=== PATIENT | female | born 1980 | race Caucasian/White ===

== ENCOUNTER 2024-04-17 18:20 | Emergency (ER) | payer BC ==
[~2024-04-17 18:20] MED LIST: Ketorolac 30 MG/ML VIAL IV ONE; diphenhydrAMINE 50 MG/ML 1 ML VIAL IV ONE
== END 2024-04-17 20:39 | disposition home or self-care (01) ==
LOC: ED 18:20
DX: G43.909 Migraine, unspecified, not intractable, without status migrainosus (principal)
CPT/HCPCS: J0780; J1200; J1885

== ENCOUNTER 2024-08-11 07:41 | Emergency (ER) | payer BC ==
[~2024-08-11] VITALS: Ht 162.6 cm; Wt 77.3 kg
[2024-08-11] MEDS ORDERED: ZEPBOUND12.5 MG/0. SQ (07:54)
[2024-08-11] MEDS ORDERED: ONDANSETRON HYDR4 MG PO (07:55)
[2024-08-11] MEDS ORDERED: ADALIMUMAB SQ (07:55)
[2024-08-11 08:26] LABS: BASO # 0.02 K/mm3 (0.02-0.10); EOS # 0.06 K/mm3 (0.04-0.40); HEMATOCRIT 40.5 % (37.0-47.0); HEMOGLOBIN 13.9 g/dL (12.5-16.0); MEAN CELL VOLUME 93 fl (78-100); MEAN CORPUSCULAR HEMOGLOBIN 32 pg (27-31); MEAN CORPUSCULAR HGB CONC 34 g/dL (33-37); MEAN PLATELET VOLUME 9.5 fl (7.4-10.4); MONO # 0.39 K/mm3 (0.20-0.80); PLATELET COUNT 270 K/mm3 (130-400); RED BLOOD COUNT 4.35 M/mm3 (4.10-5.30); RED CELL DISTRIBUTION WIDTH 12.7 % (11.5-14.5); WHITE BLOOD COUNT 5.8 K/mm3 (4.8-10.8)
[2024-08-11 08:47] LABS: ALBUMIN 3.9 g/dL (3.5-5.0)
[2024-08-11 08:48] LABS: CALCIUM 9.3 mg/dL (8.3-10.5)
[2024-08-11 08:50] LABS: TOTAL PROTEIN 6.5 g/dL (6.4-8.3)
[2024-08-11 08:51] LABS: TOTAL BILIRUBIN 0.9 mg/dL (0.2-1.2)
[2024-08-11 08:56] LABS: MAGNESIUM 1.8 mg/dL (1.60-2.60)
[2024-08-11] MEDS ORDERED: Ketorolac 30 MG/ML VIAL IV ONE (09:15)
[2024-08-11] MEDS ORDERED: diphenhydrAMINE 50 MG/ML 1 ML VIAL IV ONE (09:15)
[2024-08-11 10:40] VITALS: BP 120/87
== END 2024-08-11 10:41 | disposition home or self-care (01) ==
LOC: ED 07:41
PROVIDERS: Family Medicine
DX: G43.909 Migraine, unspecified, not intractable, without status migrainosus (principal); E86.0 Dehydration
CPT/HCPCS: J0780; J1200; J1885; J7120